=== PATIENT | male | born 1955 | race Caucasian/White ===

== ENCOUNTER 2021-01-27 18:37 | Inpatient (IN) ==
[~2021-01-27 18:37] MED LIST: *HR* Adenosine 6 MG/2 ML SYRINGE IVP ONE; *HR* Etomidate 20 MG/10 ML AMPUL IVP ONE
[2021-01-27] MEDS ORDERED: Aspirin 81 MG TAB.CHEW PO ONE (19:01)
[2021-01-27] MEDS ORDERED: Levalbuterol Neb 1.25 MG/3 ML IH STA (19:03)
[2021-01-27 19:32] LABS: Basophils # 0.1 K/mcL (0.0-0.2); Basophils % 0.3 %; Eosinophils % 0.1 %; Hematocrit 47.2 % (37.5-50.1); Hemoglobin 15.4 g/dL (12.9-16.9); Immature Granulocytes % 0.9 % (0-4); Lymphocytes # 1.7 K/mcL (0.6-4.6); Lymphocytes % 9.2 %; Mean Corpuscular HGB Conc 32.6 g/dL (31.6-35.5); Mean Corpuscular Hemoglobin 30.9 pg (28.0-33.3); Mean Corpuscular Volume 94.6 fL (83.0-100.0); Mean Platelet Volume 10.4 fL (9.4-12.4); Monocytes # 1.7 K/mcL (0.0-1.3); Monocytes % 8.8 %; Neutrophils # 15.2 K/mcL (1.6-8.9); Platelet Count 353 K/mcL (140-400); Red Blood Count 4.99 M/mcL (4.19-5.50); Red Cell Distribution Width 13.3 % (11.5-14.5); Segmented Neutrophils % 80.7 %; White Blood Count 18.8 K/mcL (4.3-11.1)
[2021-01-27 19:41] LABS: Prothrombin Time 11.8 Seconds (9.4-12.1)
[2021-01-27 19:50] LABS: BUN/Creatinine Ratio 16 (6-26); Blood Urea Nitrogen 20 mg/dL (8-23); Calcium 9.6 mg/dL (8.6-10.3); Carbon Dioxide 22 mEq/L (23-29); Chloride 102 mEq/L (98-107); Glucose 177 mg/dL (70-105); Osmolality,Calculated 291 (280-300); Potassium 4.5 mEq/L (3.5-5.1); Sodium 137 mEq/L (136-145); Troponin I 1.27 ng/mL (< 0.04); eGFR For African Americans > 60 (> 60); eGFR For Non-African Americans 58 (> 60)
[2021-01-27] MEDS ORDERED: *HR* Heparin 5,000 UNIT/ML VIAL IVP ONE (20:43)
[2021-01-27] MEDS ORDERED: *HR* Heparin 5,000 UNIT/ML VIAL IVP PRN ×2 (20:43)
[2021-01-27] MEDS ORDERED: Heparin 25,000UNIT/250ML 1/2NS 25,000 UNIT/250 ML IV.SOLN IVC SCH (20:45)
[2021-01-27] MEDS: Nicotine 21 MG PATCH.TD24 TD SCH (21:16)
[2021-01-27 21:17] LABS: Hematocrit 42.5 % (37.5-50.1); Mean Corpuscular HGB Conc 32.9 g/dL (31.6-35.5); Mean Corpuscular Hemoglobin 31.1 pg (28.0-33.3); Mean Corpuscular Volume 94.4 fL (83.0-100.0); Mean Platelet Volume 9.8 fL (9.4-12.4); Platelet Count 256 K/mcL (140-400); Red Cell Distribution Width 13.2 % (11.5-14.5); White Blood Count 15.5 K/mcL (4.3-11.1)
[2021-01-27 21:24] LABS: Heparin anti-factor XA UFH < 0.04 IU/mL (0.30-0.70); Prothrombin Time 11.8 Seconds (9.4-12.1)
[2021-01-27 21:38] LABS: Magnesium 1.9 mg/dL (1.6-2.6)
[2021-01-27] MEDS ORDERED: Perflutren Lipid Microsphere 1.3 ML in 0.9 % Sodium Chloride 8.7 ML IVP PRN (21:57)
[2021-01-27] MEDS ORDERED: Melatonin 3 MG TABLET PO PRN (21:59)
[2021-01-27] MEDS ORDERED: Acetaminophen 325 MG TABLET PO PRN (21:59)
[2021-01-27] MEDS ORDERED: Ondansetron 4 MG/2 ML VIAL IVP PRN (21:59)
[2021-01-27] MEDS ORDERED: Naloxone 0.4 MG/ML INJ IVP PRN (21:59)
[2021-01-27] MEDS ORDERED: D5% in Water 1,000 ML IVC PRN (22:23)
[2021-01-27] MEDS ORDERED: *HR* Dextrose 50 % in Water (Vial) 50 ML VIAL IVP PRN (22:23)
[2021-01-27] MEDS ORDERED: Dextrose Gel 15 GM/37.5 ML TUBE PO PRN ×2 (22:23)
[2021-01-27 22:37] LABS: Chol/HDL Ratio 3.9 (0-4.9)
[2021-01-27] MEDS: Morphine Sulfate 2 MG/ML SYRINGE IVP PRN (23:56)
[2021-01-28] MEDS: Insulin LISPRO 300 UNITS/3 ML VIAL SUBQ SCH ×5 (01:28→23:45)
[2021-01-28 02:37] LABS: Basophils % 0.2 %; Hematocrit 38.7 % (37.5-50.1); Hemoglobin 12.8 g/dL (12.9-16.9); Immature Granulocytes % 0.6 % (0-4); Lymphocytes # 1.3 K/mcL (0.6-4.6); Lymphocytes % 9.3 %; Mean Corpuscular HGB Conc 33.1 g/dL (31.6-35.5); Mean Corpuscular Hemoglobin 31.1 pg (28.0-33.3); Mean Corpuscular Volume 94.2 fL (83.0-100.0); Mean Platelet Volume 10.6 fL (9.4-12.4); Monocytes # 1.2 K/mcL (0.0-1.3); Monocytes % 8.9 %; Neutrophils # 11.3 K/mcL (1.6-8.9); Platelet Count 250 K/mcL (140-400); Red Blood Count 4.11 M/mcL (4.19-5.50); Red Cell Distribution Width 13.3 % (11.5-14.5); White Blood Count 13.9 K/mcL (4.3-11.1)
[2021-01-28] MEDS: Morphine Sulfate 2 MG/ML SYRINGE IVP PRN ×2 (02:55→06:00)
[2021-01-28 02:57] LABS: BUN/Creatinine Ratio 20 (6-26); Blood Urea Nitrogen 20 mg/dL (8-23); Calcium 8.7 mg/dL (8.6-10.3); Carbon Dioxide 21 mEq/L (23-29); Chloride 103 mEq/L (98-107); Glucose 163 mg/dL (70-105); Osmolality,Calculated 286 (280-300); Potassium 4.3 mEq/L (3.5-5.1); Sodium 135 mEq/L (136-145); eGFR For African Americans > 60 (> 60); eGFR For Non-African Americans > 60 (> 60)
[2021-01-28 03:12] LABS: Estimated Average Glucose 143 mg/dl; Hemoglobin A1C 6.6 %
[2021-01-28] MEDS ORDERED: 0.9 % Sodium Chloride 2,000 ML ONE (09:00)
[2021-01-28] MEDS ORDERED: Heparin 1,000 UNITS/500 mL 500 ML ONE (09:00)
[2021-01-28] MEDS ORDERED: *HR* Heparin 10,000 UNIT/10 ML VIAL ONE (09:00)
[2021-01-28] MEDS ORDERED: ISOVUE-370 200 ML INFUS..BTL ONE ×2 (09:00→09:48)
[2021-01-28] MEDS ORDERED: Nitroglycerin 1,000 MCG/5 ML VIAL IV ONE (09:00)
[2021-01-28] MEDS ORDERED: *HR* Midazolam HCl 2 MG/2 ML VIAL ONE (09:08)
[2021-01-28] MEDS ORDERED: *HR* FentaNYL (PF) 100 MCG/2 ML VIAL ONE (09:08)
[2021-01-28] MEDS ORDERED: Tirofiban 12.5 MG/250ML 12.5 MG/250 ML BAG ONE (09:43)
[2021-01-28] MEDS ORDERED: *HR* Ticagrelor 90 MG TABLET ONE (09:58)
[2021-01-28] MEDS: Aspirin Enteric Coated 81 MG Tablet PO SCH (10:43)
[2021-01-28] MEDS ORDERED: Tirofiban 12.5 MG/250ML 12.5 MG/250 ML BAG IVC SCH (11:00)
[2021-01-28] MEDS ORDERED: Tiotropium 10 INH DOSE IH SCH (15:30)
[2021-01-28] MEDS: lisinopriL 5 MG TABLET PO SCH (18:29)
[2021-01-28] MEDS: *HR* Ticagrelor 90 MG TABLET PO SCH (20:59)
[2021-01-28] MEDS: Nicotine 21 MG PATCH.TD24 TD SCH (21:01)
[2021-01-29 02:10] LABS: Hematocrit 34.4 % (37.5-50.1); Hemoglobin 11.7 g/dL (12.9-16.9); Mean Corpuscular Hemoglobin 31.4 pg (28.0-33.3); Mean Corpuscular Volume 92.2 fL (83.0-100.0); Mean Platelet Volume 10.2 fL (9.4-12.4); Platelet Count 213 K/mcL (140-400); Red Blood Count 3.73 M/mcL (4.19-5.50); Red Cell Distribution Width 13.1 % (11.5-14.5); White Blood Count 9.7 K/mcL (4.3-11.1)
[2021-01-29 02:28] LABS: Alanine Aminotransferase 36 Units/L (7-52); Albumin 3.5 g/dL (3.5-5.7); Albumin/Globulin Ratio 1.5 (1.1-2.2); Alkaline Phosphatase 97 Units/L (34-104); Aspartate Amino Transferase 28 Units/L (13-39); BUN/Creatinine Ratio 20 (6-26); Bilirubin,Total 0.7 mg/dL (0.3-1.0); Blood Urea Nitrogen 17 mg/dL (8-23); Calcium 8.3 mg/dL (8.6-10.3); Carbon Dioxide 24 mEq/L (23-29); Chloride 101 mEq/L (98-107); Globulin 2.3 g/dL (2.4-3.5); Glucose 149 mg/dL (70-105); Osmolality,Calculated 278 (280-300); Potassium 3.9 mEq/L (3.5-5.1); Sodium 132 mEq/L (136-145); Total Protein 5.8 g/dL (6.4-8.9); eGFR For African Americans > 60 (> 60); eGFR For Non-African Americans > 60 (> 60)
[2021-01-29] MEDS: Insulin LISPRO 300 UNITS/3 ML VIAL SUBQ SCH (05:17)
[2021-01-29] MEDS ORDERED: *HR* Enoxaparin 40 MG/0.4 ML SYRINGE SQ SCH (06:00)
[2021-01-29 06:21] VITALS: BP 149/79; PULSE 79; TEMP 97.8; O2SAT 96
[2021-01-29] MEDS: Aspirin Enteric Coated 81 MG Tablet PO SCH (09:29)
[2021-01-29] MEDS: lisinopriL 5 MG TABLET PO SCH (09:29)
[2021-01-29] MEDS: *HR* Ticagrelor 90 MG TABLET PO SCH (09:29)
== END 2021-01-29 10:38 | disposition home or self-care (01) | DRG 247 ==
LOC: EMEROOARM 18:37 → 2ANU 18:37 → 2NNU 18:37 → SUATTDRO 23:28 → 2NNU 01-28 00:56 → 3BNU 01-28 16:02
PROVIDERS: ADMIT Internal Medicine; ATTEND Internal Medicine